=== PATIENT | female | born 1985 | race Two or more races ===

== ENCOUNTER 2019-11-16 12:26 | Day surgery (SDC) | payer MEDICAID ==
[~2019-11-16] VITALS: Ht 157.5 cm; Wt 62.3 kg
[~2019-11-16 12:26] MED LIST: IBUP-1222 PO; OXYC-302 PO
[2019-11-16] MEDS ORDERED: LIDOCAINE-MPF 1%, 2ML ONE (13:15)
[2019-11-16] MEDS ORDERED: CHLORHEXIDINE 15 ML UDC ONE (13:15)
[2019-11-16] MEDS ORDERED: LACTATED RINGERS 1,000 ML IV SCH (13:20)
[2019-11-16 13:22] VITALS: BP 122/83
[2019-11-16] MEDS ORDERED: BUPIVACAINE/PF-EPI 0.25% 1:200K ONE (13:24)
[2019-11-16 13:29] LABS: HCG UR SG 1.024 (1.003-1.030)
[2019-11-16] MEDS ORDERED: CHLORHEXIDINE 15 ML UDC MM ONE (13:30)
[2019-11-16] MEDS ORDERED: LIDOCAINE-MPF 1%, 2ML INFIL ONE (13:30)
[2019-11-16 13:33] LABS: BASOPHILS # (AUTO) 0.04 x10^3/uL (0-0.1); BASOPHILS % (AUTO) 1 % (0-1); EOSINOPHILS # (AUTO) 0.08 x10^3/uL (0-0.4); EOSINOPHILS % (AUTO) 1 % (1-7); LYMPHOCYTES # (AUTO) 2.43 x10^3/uL (1-3.4); LYMPHOCYTES % (AUTO) 37 % (22-44); MD NO; MEAN CORPUSCULAR HEMOGLOBIN 30.8 pg (27.0-34.8); MEAN CORPUSCULAR HGB CONC 32.7 g/dL (32.4-35.8); MEAN CORPUSCULAR VOLUME 94.1 fL (80-100); MEAN PLATELET VOLUME 7.9 fL (7.4-10.4); MONOCYTES % (AUTO) 8 % (2-9); NEUTROPHILS # (AUTO) 3.54 x10^3/uL (1.8-6.8); NEUTROPHILS % (AUTO) 54 % (42-75); PLATELET COUNT 316 x10^3/uL (130-400); RED BLOOD COUNT 4.52 x10^6/uL (3.82-5.3); RED CELL DISTRIBUTION WIDTH 12.2 % (9.6-15.2)
[2019-11-16 13:44] LABS: ANION GAP 8 mmol/L (5-15); CALCIUM 8.8 mg/dL (8.5-10.1); CHLORIDE 108 mmol/L (98-107); CREATININE 0.69 mg/dL (0.55-1.02)
[2019-11-16] MEDS ORDERED: FENTANYL PF 100 MCG/2ML ONE (14:37)
[2019-11-16] MEDS ORDERED: MIDAZOLAM 1 MG/ML, 2ML ONE (14:37)
[2019-11-16] MEDS ORDERED: KETOROLAC 30 MG/1 ML ONE (14:46)
[2019-11-16] MEDS ORDERED: ROCURONIUM 10MG/ML,5ML ONE (14:48)
[2019-11-16] MEDS ORDERED: SUCCINYLCHOLINE 20 MG/ML, 10ML ONE (14:48)
[2019-11-16] MEDS ORDERED: ONDANSETRON 2MG/ML, 2ML ONE (14:48)
[2019-11-16] MEDS ORDERED: PROPOFOL 10 MG/ML, 20ML ONE (14:48)
[2019-11-16] MEDS ORDERED: SUGAMMADEX 200 MG/2 ML IVPush ONE (14:48)
[2019-11-16] MEDS ORDERED: CEFAZOLIN 1,000 MG ONE (14:48)
[2019-11-16] MEDS ORDERED: DEXAMETHASONE 4 MG/ML, 1ML ONE (14:48)
[2019-11-16] MEDS ORDERED: FENTANYL PF 100 MCG/2ML IV PRN (15:00)
[2019-11-16] MEDS ORDERED: hydrALAzine 20 MG/ML, 1ML IV PRN (15:00)
[2019-11-16] MEDS ORDERED: PROMETHAZINE 25 MG/ML, 1ML IVPush PRN (15:00)
[2019-11-16] MEDS ORDERED: LABETALOL 5MG/ML, 20ML IV PRN (15:00)
[2019-11-16] MEDS ORDERED: OXYcodone 5 MG/5 ML ORAL.SOL UDC PO PRN (15:00)
[2019-11-16] MEDS ORDERED: ONDANSETRON 2MG/ML, 2ML IVPush PRN (15:00)
[2019-11-16] MEDS ORDERED: MEPERIDINE/PF 25MG/0.5ML IVPush PRN (15:00)
[2019-11-16] MEDS ORDERED: HYDROmorphone 1 MG/ML, 1ML INJ IVPush PRN (15:00)
[2019-11-16] MEDS ORDERED: ACETAMINOPHEN 325 MG TABLET PO PRN (15:00)
[2019-11-16] MEDS ORDERED: EPHEDRINE 50 MG/ML, 1ML IVPush PRN (15:00)
== END 2019-11-16 17:45 | disposition home or self-care (01) ==
LOC: OUT 12:26
PROVIDERS: ATTEND Obstetrics & Gynecology
DX: Z30.2 Encounter for sterilization (principal); Z11.59 Encounter for screening for other viral diseases; Z79.899 Other long term (current) drug therapy; Z83.3 Family history of diabetes mellitus; Z82.49 Family history of ischemic heart disease and other diseases of the circulatory system
CPT/HCPCS: 36415; 58670; 80048; 81025; 85025; 87635; 88302; J0330; J0690; J1100; J1885; J2250; J2405; J2704; J3010; J7120

== ENCOUNTER 2019-12-08 17:26 | Emergency (ER) | payer MEDICAID ==
[~2019-12-08] VITALS: Ht 157.5 cm; Wt 63.7 kg
[2019-12-08 17:30] VITALS: BP 135/80
--- NOTE | 2019-12-08 18:40 | NUR ---
PT LEFT PRIOR TO RECEIVING DC [facility]. RESP EVEN AND UNLABORED, NADN.
== END 2019-12-08 18:46 | disposition home or self-care (01) ==
LOC: ED 18:29
DX: R10.9 Unspecified abdominal pain (principal); Z98.51 Tubal ligation status; Z48.00 Encounter for change or removal of nonsurgical wound dressing
CPT/HCPCS: 99281